=== PATIENT | female | born 1965 | race Two or more races ===

== ENCOUNTER 2016-12-06 01:11 | Inpatient (IN) | payer BC, OTHER ==
[~2016-12-06] VITALS: Ht 165.1 cm; Wt 95.9 kg
[2016-12-06] MEDS ORDERED: ACETAMINOPHEN 500 MG TAB PO ONE (02:00)
[2016-12-06] MEDS ORDERED: ONDANSETRON ODT 4 MG TAB PO ONE (02:00)
[2016-12-06 02:14] LABS: Basophils # (auto) 0.1 uL; Basophils % (auto) 0.5 % (0.0-2.0); CONDITION Y; Eosinophils # (auto) 0 uL; Eosinophils % (auto) 0.2 % (0.0-7.0); Hematocrit 44.4 % (36.0-46.0); Hemoglobin 15.1 g/dL (12.2-16.2); Lymphocytes # (auto) 1.1 uL; Lymphocytes % (auto) 9.6 % (10.0-50.0); Mean Corpuscular Hemoglobin 31.9 pg (28.0-32.0); Mean Corpuscular Volume 93.8 fL (80.0-100.0); Mean Platelet Volume 7.2 fL (7.4-10.4); Monocytes # (auto) 0.7 uL; Monocytes % (auto) 6.7 % (0.0-12.0); Neutrophils # (auto) 9.2 uL; Platelet Count (auto) 434 10^3/uL (140-450); Red Cell Distribution Width 12.5 % (11.6-16.0); White Blood Cell 11.1 10^3/uL (4.4-10.8)
[2016-12-06 02:30] LABS: INR 0.98 (0.9-1.15); Partial Thromboplastin Time 27.7 sec (22.64-33.71); Prothrombin Time 10.7 sec (9.37-12.3)
[2016-12-06 02:38] LABS: Albumin 3.7 g/dL (3.4-5.0); Anion Gap 10 (5-15); Aspartate Aminotransferase 27 U/L (15-37); BUN/Creatinine Ratio 13.9; Blood Urea Nitrogen 11 mg/dL (7-18); Calcium 8.7 mg/dL (8.5-10.1); Carbon Dioxide 23 mmol/L (21-32); Chloride 104 mmol/L (98-107); GFR African American 99 mL/min; GFR Non-African American 82 mL/min; Glucose 118 mg/dL (74-106); Sodium 137 mmol/L (136-145)
[2016-12-06 02:43] LABS: Alkaline Phosphatase 97 U/L (45-117); Bilirubin, Total 0.5 mg/dL (0.2-1.0); Total Protein 8.3 g/dL (6.4-8.2)
[2016-12-06 07:26] LABS: Urine Bilirubin Negative (Negative); Urine Blood Negative /uL (Negative); Urine Color Yellow (Yellow); Urine Glucose Normal (Normal); Urine Ketone Negative (Negative); Urine Nitrite Negative (Negative); Urine RBC <1 /hpf (0 - 4); Urine Squamous Epithelial Cell FEW /hpf (<5); Urine Urobilinogen Normal (Negative); Urine pH 5.5 (5.0-8.0)
[2016-12-06] MEDS ORDERED: BARIUM SULFATE 98% 340 GM PWDR ONE (07:53)
[2016-12-06] MEDS ORDERED: cefTRIAXone 1GM/50ML D5W 50 ML IV ONE (09:00)
[2016-12-06] MEDS ORDERED: TEMAZEPAM 15 MG CAP PO PRN (09:30)
[2016-12-06] MEDS ORDERED: LORazepam 0.5 MG TAB PO PRN (09:30)
[2016-12-06] MEDS ORDERED: HYDROcodone-ACET 5/325MG TAB PO PRN (09:30)
[2016-12-06] MEDS ORDERED: ACETAMINOPHEN 500 MG TAB PO PRN (09:30)
[2016-12-06] MEDS ORDERED: MORPHINE SULFATE 4 MG/ML SYRG IV PRN ×2 (09:30)
[2016-12-06] MEDS ORDERED: DEXTROSE (50%) 50ML SYRG IV PRN (09:30)
[2016-12-06] MEDS ORDERED: PROMETHAZINE HCL 25 MG/ML 1ML IV PRN (09:30)
[2016-12-06] MEDS ORDERED: NITROGLYCERIN 0.4 MG SL TAB SL PRN (09:30)
[2016-12-06] MEDS: SODIUM CHLORIDE 0.9% 1,000 ML IV SCH ×2 (10:02→19:26)
[2016-12-06] MEDS: PANTOPRAZOLE SODIUM 40 MG/10 ML VIAL IV SCH (10:16)
[2016-12-06] MEDS: ENOXAPARIN SOD 40 MG/0.4 ML SYRINGE SC SCH (10:16)
[2016-12-06] MEDS: InsuLIN REG 1unit/0.01ml Soln (100units/ml) SC SCH ×2 (12:00→18:00)
[2016-12-06] MEDS: ACCU-CHEK COMFORT CURVE STRIP VI SCH ×2 (12:00→18:29)
[2016-12-06] MEDS: metroNIDAZOLE 500MG/100ML 100 ML IV SCH ×2 (14:33→18:29)
[2016-12-06 16:47] VITALS: BP 117/84
[2016-12-06 21:56] VITALS: BP 124/66
[2016-12-07] VITALS (7 sets, daily range): BP systolic 104–128; BP diastolic 62–72
[2016-12-07] MEDS: InsuLIN REG 1unit/0.01ml Soln (100units/ml) SC SCH ×4 (00:30→18:00)
[2016-12-07] MEDS: metroNIDAZOLE 500MG/100ML 100 ML IV SCH ×4 (00:30→19:14)
[2016-12-07] MEDS: ACCU-CHEK COMFORT CURVE STRIP VI SCH ×4 (00:31→18:00)
[2016-12-07] MEDS: SODIUM CHLORIDE 0.9% 1,000 ML IV SCH ×2 (05:37→15:26)
[2016-12-07 06:22] LABS: Basophils # (auto) 0 uL; Basophils % (auto) 0.4 % (0.0-2.0); CONDITION Y; Eosinophils # (auto) 0.2 uL; Eosinophils % (auto) 2.8 % (0.0-7.0); Hemoglobin 13.5 g/dL (12.2-16.2); Lymphocytes # (auto) 1.5 uL; Lymphocytes % (auto) 21.7 % (10.0-50.0); Mean Corpuscular Hemoglobin 31.8 pg (28.0-32.0); Mean Corpuscular Hgb Conc. 33.8 g/dL (32.0-36.0); Mean Platelet Volume 7.4 fL (7.4-10.4); Monocytes % (auto) 14.2 % (0.0-12.0); Neutrophils # (auto) 4.2 uL; Neutrophils % (auto) 60.9 % (37.0-80.0); Platelet Count (auto) 370 10^3/uL (140-450); Red Cell Distribution Width 12.9 % (11.6-16.0); White Blood Cell 6.9 10^3/uL (4.4-10.8)
[2016-12-07 06:49] LABS: Albumin 2.9 g/dL (3.4-5.0); BUN/Creatinine Ratio 17.3; Bilirubin, Total 0.4 mg/dL (0.2-1.0); Calcium 8.7 mg/dL (8.5-10.1); Potassium 3.5 mmol/L (3.5-5.1); Total Protein 6.7 g/dL (6.4-8.2)
[2016-12-07] MEDS: cefTRIAXone 1GM/50ML D5W 50 ML IV SCH (10:07)
[2016-12-07] MEDS: PANTOPRAZOLE SODIUM 40 MG/10 ML VIAL IV SCH (10:08)
[2016-12-07] MEDS: ENOXAPARIN SOD 40 MG/0.4 ML SYRINGE SC SCH (10:09)
[2016-12-08] MEDS: metroNIDAZOLE 500MG/100ML 100 ML IV SCH ×3 (00:24→12:05)
[2016-12-08] MEDS: ACCU-CHEK COMFORT CURVE STRIP VI SCH ×3 (00:25→12:14)
[2016-12-08] MEDS: SODIUM CHLORIDE 0.9% 1,000 ML IV SCH ×2 (01:26→11:26)
[2016-12-08 05:09] VITALS: BP 138/72
[2016-12-08] MEDS: InsuLIN REG 1unit/0.01ml Soln (100units/ml) SC SCH ×3 (06:00→12:00)
[2016-12-08 07:40] VITALS: BP 129/76
[2016-12-08 09:00] VITALS: BP 129/76
[2016-12-08] MEDS: cefTRIAXone 1GM/50ML D5W 50 ML IV SCH (09:45)
[2016-12-08] MEDS: PANTOPRAZOLE SODIUM 40 MG/10 ML VIAL IV SCH (09:46)
[2016-12-08] MEDS: ENOXAPARIN SOD 40 MG/0.4 ML SYRINGE SC SCH (09:46)
[2016-12-08 13:00] VITALS: BP 114/71
[2016-12-08 15:28] VITALS: BP 114/71
== END 2016-12-08 16:15 | disposition home or self-care (01) | DRG 392 ==
LOC: ER 01:11 → TELE 01:12 → TELE-CENTR 11:06
PROVIDERS: ADMIT Internal Medicine; ATTEND Internal Medicine
DX: K52.9 Noninfective gastroenteritis and colitis, unspecified (principal); K56.60 Unspecified intestinal obstruction; E11.9 Type 2 diabetes mellitus without complications; E66.9 Obesity, unspecified; E78.5 Hyperlipidemia, unspecified; K76.0 Fatty (change of) liver, not elsewhere classified; Z86.010 Personal history of colon polyps; Z68.35 Body mass index [BMI] 35.0-35.9, adult; Z90.710 Acquired absence of both cervix and uterus; Z83.49 Family history of other endocrine, nutritional and metabolic diseases
CPT/HCPCS: 36415; 71010; 74176; 74250; 80053; 80061; 81001; 82150; 82270; 82378; 82550; 82962; 83036; 83690; 84484; 85025; 85048; 85379; 85610; 85652; 85730; 86141; 87040; 87493; 93005; 96365; C9113; J0696; J3490; Q0162